=== PATIENT | male | born 1995 | race Caucasian/White ===

== ENCOUNTER 2017-09-22 09:17 | Day surgery (SDC) | payer BC, MEDICAID ==
[2017-09-22] MEDS ORDERED: PROPOFOL 10 MG/ML VIAL IV ONE (09:18)
[2017-09-22] MEDS ORDERED: LIDOCAINE 2% MDV (20MG/ML) 20ML VIAL IV ONE (09:18)
--- NOTE | 2017-09-26 07:20 | Operative Note ---
DATE OF SURGERY: 09/22/2017 REQUESTING PHYSICIAN: Isaac Kumar DO SURGEON: Mohan Silva MD POSTOPERATIVE DIAGNOSES: 1. LA Class C esophagitis. 2. Mild gastritis. 3. Normal duodenum. OPERATION: ESOPHAGOGASTRODUODENOSCOPY and exam. REASON FOR PROCEDURE: This is a 23-year-old male with a history of dysphagia presenting for esophagogastroduodenoscopy. SEDATION: Sedation as per anesthesia. Pulse oximetry was monitored throughout the duration of the procedure to maintain O2 saturation of 90% or greater. Supplemental oxygen was administered via nasal cannula. Cardiac and vital signs were monitored throughout the duration of the procedure and they were stable. PROCEDURE: Description of the procedure of esophagogastroduodenoscopy, risks and alternatives to the procedure including the risk of bleeding and perforation among others were explained to the patient who voiced understanding and decided to proceed. Physical examination was performed and the patient was found stable for sedation. The patient was then placed in the left lateral position and sedation was initiated. A plastic bite block was inserted into the oral cavity. A lubricated Olympus GIF-180 gastroscope was then placed through the posterior oropharynx and under direct visualization was advanced through the proximal esophagus without difficulty. The esophagus was carefully examined upon insertion of the gastroscope. The proximal and mid esophageal mucosa appeared normal. In the distal esophagus, there was LA Class C esophagitis with ulcerations, but no mass lesions were noted. The gastroscope was then advanced to the stomach. Serial examination of the stomach revealed normal gastric fundus with diffuse erythema along the gastric antrum and body but no ulcers were noted. The gastroscope was then advanced to the descending duodenum without difficulty. The duodenal bulb and descending duodenal mucosa appeared normal. The gastroscope was then withdrawn into the stomach and retroflexion was performed. There were no other lesions noted. The gastroscope was then straightened and withdrawn, very carefully re-examining the gastric and esophageal mucosa and no other lesions were noted. Multiple duodenal, gastric, distal esophageal, and mid esophageal biopsies were obtained. He remained with stable vital signs and a red Cortes dilator size 6 was passed into the stomach with mild resistance. The dilator was then withdrawn and the procedure was terminated. The patient tolerated the procedure well without any complications. The patient remained with stable vital signs and was sent to the recovery room. PLAN AND RECOMMENDATIONS: 1. He is to be on his proton pump inhibitor twice daily. 2. The patient will have repeat endoscopy in about 3 months to assess healing of the esophageal ulcers. Thank you for allowing me to participate in the care of this patient. CC: DO RANJEET Gamez
== END 2017-09-22 11:10 | disposition home or self-care (01) ==
LOC: HOP 09:17
PROVIDERS: ATTEND Internal Medicine Gastroenterology
DX: K22.10 Ulcer of esophagus without bleeding (principal); K29.50 Unspecified chronic gastritis without bleeding; R13.10 Dysphagia, unspecified; K20.9 Esophagitis, unspecified; G80.9 Cerebral palsy, unspecified

== ENCOUNTER 2018-01-05 10:14 | Day surgery (SDC) | payer BC, MEDICAID ==
[2018-01-05] MEDS ORDERED: FENTANYL PF 100MCG/2ML VIAL IV ONE (10:15)
[2018-01-05] MEDS ORDERED: PROPOFOL 10 MG/ML VIAL IV ONE (10:15)
[2018-01-05] MEDS ORDERED: LIDOCAINE 2% MDV (20MG/ML) 20ML VIAL IV ONE (10:15)
--- NOTE | 2018-01-08 13:40 | Operative Note ---
DATE OF SURGERY: 01/05/2018 SURGEON: Mohan Silva MD OPERATION: ESOPHAGOGASTRODUODENOSCOPY. INDICATIONS: This is a 23-year-old male with history of ulcerative esophagitis who presented for repeat esophagogastroduodenoscopy. POSTOPERATIVE DIAGNOSES: 1. Mild distal esophagitis with no strictures, status post biopsy. 2. Normal stomach and duodenum. ANESTHESIA: Sedation is per Anesthesia. Pulse oximetry was monitored throughout the procedure to maintain O2 saturation of 90% or greater. Supplemental oxygen was administered via nasal cannula. Cardiac and vital signs were monitored throughout the duration of the procedure, and they were stable. The procedure of esophagogastroduodenoscopy and risks and benefits of the procedure, including the risk of bleeding and perforation, among others, were explained to the patient who voiced understanding and agreed to have the procedure done. Physical examination was performed, and the patient was found stable for sedation. PROCEDURE: The patient was placed in the left lateral position. Sedation was initiated. A plastic bite block was inserted into the oral cavity. The Olympus [id number] gastroscope was introduced into the oral cavity and advanced to the proximal esophagus without difficulty. The esophageal mucosa was carefully examined upon introduction of the gastroscope. The proximal and mid and distal esophageal mucosa appeared normal with mild distal esophagitis. The gastroscope was then advanced into the stomach, and surveillance of the stomach revealed normal stomach and duodenum with no ulcerations or any inflammatory process noted. The gastroscope was then withdrawn into the stomach and retroflexion was performed. There were no lesions noted. The gastroscope was then withdrawn while carefully examining the gastric and esophageal mucosa. No other lesions noted. Multiple distal esophageal biopsies were obtained. The patient remained with stable vital signs and was transferred to the recovery room. RECOMMENDATIONS: 1. We will follow up on the biopsies. 2. The patient is to continue on his proton pump inhibitors. 3. I will see him back in the office as needed. Thank you for allowing me to participate in the care of your patient. CC: Dr. Isaac POLLACK
== END 2018-01-05 13:42 | disposition home or self-care (01) ==
LOC: HOP 10:14
PROVIDERS: ATTEND Internal Medicine Gastroenterology
DX: K21.0 Gastro-esophageal reflux disease with esophagitis (principal); Z79.899 Other long term (current) drug therapy; Z51.81 Encounter for therapeutic drug level monitoring
CPT/HCPCS: 80053; 80061; 82306; 82607; 84443; 85025